=== PATIENT | male | born 1975 | race Caucasian/White ===

== ENCOUNTER 2023-01-25 07:39 | Outpatient (CLI) | payer OTHER, SELFPAY | END 2023-01-25 07:40 | disposition home or self-care (01) | PROVIDERS: PCP Family Medicine; Visit Provider Family Medicine | DX: Z00.00 Encounter for general adult medical examination without abnormal findings (principal); I10 Essential (primary) hypertension; M10.9 Gout, unspecified; R63.5 Abnormal weight gain; Z13.6 Encounter for screening for cardiovascular disorders | CPT/HCPCS: 80053; 80061; 84443 ==

== ENCOUNTER 2023-03-01 16:01 | Outpatient (CLI) | payer OTHER, SELFPAY | END 2023-03-01 16:02 | disposition home or self-care (01) | LOC: NFLDREF 16:06 | PROVIDERS: PCP Family Medicine; Visit Provider Family Medicine | DX: I10 Essential (primary) hypertension (principal) | CPT/HCPCS: 80048 ==

== ENCOUNTER 2023-04-01 11:59 | Outpatient (CLI) | payer OTHER, SELFPAY ==
--- NOTE | 2023-04-01 12:39 | W.ANESCHARGE ---
Anesthesia Charges Start Date/Time Anesthesia Start Date: 04/01/23 Anesthesia Start Time: 12:20 Stop Date/Time Anesthesia Stop Date: 04/01/23 Anesthesia Stop Time: 13:17
--- NOTE | 2023-04-01 14:06 | W.ANESCHARGE ---
Anesthesia Charges Start Date/Time Anesthesia Start Date: 04/01/23 Anesthesia Start Time: 12:20 Stop Date/Time Anesthesia Stop Date: 04/01/23 Anesthesia Stop Time: 13:17
== END 2023-04-01 12:00 | disposition home or self-care (01) ==
PROVIDERS: PCP Family Medicine; Visit Provider Internal Medicine
DX: Z12.11 Encounter for screening for malignant neoplasm of colon (principal); K57.30 Diverticulosis of large intestine without perforation or abscess without bleeding
CPT/HCPCS: 00812; 00813; 45378; J2704

== ENCOUNTER 2023-05-03 07:40 | Outpatient (CLI) | payer OTHER, SELFPAY | END 2023-05-03 07:41 | disposition home or self-care (01) | LOC: NFLDREF 05-04 11:30 | PROVIDERS: PCP Family Medicine; Referring Provider Family Medicine; Visit Provider Family Medicine | DX: I10 Essential (primary) hypertension (principal) | CPT/HCPCS: 80048 ==

== ENCOUNTER 2023-09-13 15:49 | Outpatient (CLI) | payer OTHER, SELFPAY | END 2023-09-13 15:50 | disposition home or self-care (01) | PROVIDERS: PCP Family Medicine; Visit Provider Family Medicine | DX: I10 Essential (primary) hypertension (principal); I1A.0 Resistant hypertension | CPT/HCPCS: 82088; 82310; 83970; 84244 ==

== ENCOUNTER 2023-10-31 13:00 | Outpatient (CLI) | payer OTHER, SELFPAY ==
--- OUTSIDE RECORDS SUMMARY | 2023-10-31 13:06 | XMS_ITS | Clinical Summary ---
Author Name Unknown Organization [facility] Address [place], [place] [address] Care Team Providers Care Lamina Searcher Name Role Phone Jamel Hickman MD Primary Care Provider Allergies No known active allergies Medications Medication Sig Dispensed Refills Start Date End Date Status lisinopril-hydrochlor othiazide 20-12.5 mg tablet (PRINIZIDE)Indication s:HTN (hypertension) Take 1 tablet by mouth once daily. 90 tablet 3 07/01/2015 Active Active Problems Problem Noted Date Diagnosed Date Smoker 04/28/2016 Routine health maintenance 05/24/2014 Gout 05/22/2014 HTN (hypertension) 08/31/2010 Resolved Problems Problem Noted Date Diagnosed Date Resolved Date LACERATION FINGER 10/12/2001 05/22/2014 Immunizations Name Administration Dates Next Due AMB Influenza, IIV3 (Age >=3 years)(Flu Clinic Only) 04/25/2010 Influenza, IIV3 (Age >=3 years) 05/25/2013,05/19,05/21/2011 Influenza, IIV4 05/23/2015,05/24/2014 Td (Age >=7 Years) 12/09/2005 Tdap 04/28/2016 Social History Tobacco Use Types Packs/Day Years Used Date Smoking Tobacco: Light Smoker Cigarettes Smokeless Tobacco: Never Tobacco Cessation:Ready to Q uit: No; Counseling Given: Yes Alcohol Use Standard Drinks/Week Comments Yes 0 (1 standard drink = 0.6 oz pur e alcohol) Sex and Gender Information Value Date Recorded Sex Assigned at Not on file Gender Identity Not on file Sexual Orientation Not on file Obstetrics History Last Filed Vital Signs Vital Sign Reading Time Taken Comments Blood Pressure 134/76 04/28/2016 3:52 PM CDT Pulse 76 04/28/2016 3:52 PM CDT Temperature 36.7 ??C (98 ??F) 04/28/2016 3:52 PM CDT Respiratory Rate - - Oxygen Saturation 97% 04/28/2016 3:52 PM CDT Inhaled Oxygen Concentration - - Weight 115.5 kg (254 lb 11.2 oz) 04/28/2016 3:52 PM CDT Height 186.1 cm (6' 1.25) 04/28/2016 3:52 PM CD T Body Mass Index 33.37 04/28/2016 3:52 PM CDT Plan of Treatment Health Maintenance Due Date Last Done Comments HIV for age 15-65 1988 Hepatitis C screening for age 18-79 1991 Depression screening for age 12+ 07/01/2016 07/01/2015 BMI (ht and wt on same day) for age 18+ 04/28/2017 04/28/2016, 07/01/2015 Colonoscopy through age 75 2018 Lipids for age 45-75 07/01/2020 07/01/2015, 05/24/2014, 11/29/2011 COVID-19 vaccine series ( - 2022-24 season) 2023 Zoster (shingles) series for age 50+ (1 of 2) 2023 Influenza for age 50-64 02/26/2024 05/23/20 15, 05/24/2014, 05/25/2013, Additional history exists Tetanus booster 04/28/2026 04/28/2016, 12/09/2005 Tdap Completed 04/28/2016 Pneumococcal series for age 6-64 Aged Out No longer eligible based on patient's age to complete this topic Procedures Procedure Name Priority Date/Time Associated Diagnosis Comments LIPID PANEL W REFLEX MEASURED LDL Routine 07/01/2015 8:32 AM SUPPLY AIDE Routine health maintenance from Last 3 Months or Most Recently Relevant to Health Maintenance Results * (ABNORMAL) LIPID PANEL W REFLEX MEASURED LDL (07/01/2015 8:32 AM SUPPLY AIDE) CHOLESTEROL,TOTAL 203(H) 100 - 199 mg/dL 07/01/2015 1:11 PM SUPPLY AIDE [facility] TRIGLYCERIDES 194(H) <150 mg/dL 07/01/2015 1:11 PM SUPPLY AIDE [facility] HDL CHOLESTEROL 42 >40 mg/dL 07/01/2015 1:11 PM SUPPLY AIDE [facility] NON-HDL CHOLESTEROL 161(H) <145 mg/dl 07/01/2015 1:11 PM SUPPLY AIDE [facility] CHOL/HDL RATIO 4.83(H) <4.50 07/01/2015 1:11 PM SUPPLY AIDE [facility] LDL CHOLESTEROL 122 <=130 mg/dL 07/01/2015 1:11 PM SUPPLY AIDE [facility] PATIENT STATUS FASTING 07/01/2015 1:11 PM SUPPLY AIDE [facility] Blood specimen (specimen) BLOOD SPECIMEN / Unknown Venipuncture / Unknown 07/01/2015 8:32 AM SUPPLY AIDE 07/01/2015 8:32 AM SUPPLY AIDE Jamel Hickman MD [facility] [address] [place], [place] [id number] . [address] [place] [address], from Last 3 Months or Most Recently Relevant to Health Maintenance Care Teams Lamina Searcher Relationship Specialty [place] [address] [place] [address] PCP - General 04/25/10
--- NOTE | 2023-11-16 08:44 | W.PM.SLEEP ---
Sleep Study Details Details Interpreting Provider: Karishma Date of Sleep Study: 10/31/23 Sleep Study Details: STUDY TYPE:? Home unattended ? BMI:? Not record ORDERING PROVIDER:? Karishma INDICATION:? Concern about sleep apnea ? SLEEP SUMMARY:? 368 minutes monitored RESPIRATORY SUMMARY:? AHI 41.7 Low oxygen 72 13.8% of study oxygen less than 90% Snoring 95.6% PERIODIC LIMB MOVEMENTS OF SLEEP:? Not recorded CARDIAC:? Range 50-107, mean 61.2 IMPRESSION:? Severe obstructive sleep apnea with significant desaturations RECOMMENDATION: In-lab titration or AutoSet CPAP.
== END 2023-10-31 13:01 | disposition home or self-care (01) ==
LOC: SLEEP 13:00
PROVIDERS: PCP Family Medicine; Visit Provider Otolaryngology
DX: G47.33 Obstructive sleep apnea (adult) (pediatric) (principal)
CPT/HCPCS: 95806

== ENCOUNTER 2024-04-17 10:12 | Outpatient (CLI) | payer OTHER, SELFPAY ==
--- OUTSIDE RECORDS SUMMARY | 2024-04-17 10:15 | XMS_ITS | Clinical Summary ---
Author Organization [facility] Address [place], [place] [address] Care Team Providers Care Embedded Engineer Name Role Phone Jamel Hickman MD Primary [...] for age 45-75 07/01/2020 07/01/2015, 05/24/2014, 11/29/2011 Zoster (shingles) series for age 50+ (1 of 2) 2023 COVID-19 vaccine series ( - 2023- season) 2024 Influenza for age 50-64 02/26/2024 05/23/20, 05/24/2014, 05/25/2013, Additional history exists Tetanus booster 04/28/2026 04/28/2016, 12/09/2005 Tdap Completed 04/28/2016 Pneumococcal series for age 6-64 Aged Out No longer eligible based on patient's age to complete this topic Procedures Procedure Name Priority Date/Time Associated Diagnosis Comments LIPID PANEL W REFLEX MEASURED LDL Routine 07/01/2015 8:32 AM QUILLER MACHINE FIXER Routine health maintenance from Last 3 Months or Most Recently Relevant to Health Maintenance Results * (ABNORMAL) LIPID PANEL W REFLEX MEASURED LDL (07/01/2015 8:32 AM QUILLER MACHINE FIXER) CHOLESTEROL,TOTAL 203(H) 100 - 199 mg/dL 07/01/2015 1:11 PM QUILLER MACHINE FIXER [facility] TRIGLYCERIDES 194(H) <150 mg/dL 07/01/2015 1:11 PM QUILLER MACHINE FIXER [facility] HDL CHOLESTEROL 42 >40 mg/dL 07/01/2015 1:11 PM QUILLER MACHINE FIXER [facility] NON-HDL CHOLESTEROL 161(H) <145 mg/dl 07/01/2015 1:11 PM QUILLER MACHINE FIXER [facility] CHOL/HDL RATIO 4.83(H) <4.50 07/01/2015 1:11 PM [facility] LDL CHOLESTEROL 122 <=130 mg/dL 07/01/2015 1:11 PM QUILLER MACHINE FIXER [facility] PATIENT STATUS FASTING 07/01/2015 1:11 PM QUILLER MACHINE FIXER [facility] Blood specimen (specimen) BLOOD SPECIMEN / Unknown Venipuncture / Unknown 07/01/2015 8:32 AM QUILLER MACHINE FIXER 07/01/2015 8:32 AM QUILLER MACHINE FIXER Jamel Hickman MD CHEMISTRY [facility] [address] [place] [address] [employer] [address] [place] [address], from Last 3 Months or Most Recently Relevant to Health Maintenance Care Teams Embedded Engineer Relationship Specialty Start [place] [id number] [place] [address] PCP - General 04/25/10
== END 2024-04-17 10:13 | disposition home or self-care (01) ==
PROVIDERS: PCP Family Medicine; Visit Provider Family Medicine
DX: I10 Essential (primary) hypertension (principal); Z13.6 Encounter for screening for cardiovascular disorders
CPT/HCPCS: 80053; 80061

== ENCOUNTER 2025-03-13 10:25 | Outpatient (CLI) | payer OTHER, SELFPAY | END 2025-03-13 10:26 | disposition home or self-care (01) | LOC: NFLDREF 03-19 16:17 | PROVIDERS: PCP Family Medicine; Referring Provider Family Medicine; Visit Provider Family Medicine | DX: Z00.00 Encounter for general adult medical examination without abnormal findings (principal); I10 Essential (primary) hypertension; E78.5 Hyperlipidemia, unspecified | CPT/HCPCS: 80053; 80061 ==